=== PATIENT | male | born 1995 | race Caucasian/White ===

== ENCOUNTER 2018-10-01 12:11 | Outpatient (REF) | payer BC, SELFPAY ==
[2018-10-01 13:09] LABS: Abs Immature Grans 0.01 k/cumm (0.0-0.09); Absolute Basophil Count 0.03 k/cumm (0.0-0.2); Absolute Eosinophil Count 0.11 k/cumm (0.0-0.7); Absolute Lymphocyte Count 1.23 k/cumm (1.2-3.4); Absolute Monocyte Count 0.75 k/cumm (0.11-0.7); Absolute Neutrophil Count 3.79 k/cumm (1.2-6.7); Basophils % 0.5; Eosinophils % 1.9; HCT 42.7 % (40.0-50.0); HGB 14.7 g/dL (13.5-17.5); Immature Grans % 0.2; Lymphocytes % 20.8; Mean Corp. HGB Concentration 34.4 g/dL (32.0-36.0); Mean Corpuscular Hemoglobin 30.5 pg (27.0-33.0); Mean Corpuscular Volume 88.6 fL (80-95); Mean Platelet Volume 10.4 fL (8.0-11.0); Monocytes % 12.7; Neutrophils % 63.9; Platelet Count 223 x1000/uL (130-400); RBC 4.82 m/cumm (4.50-6.00); RBC Distribution Width 12.6 % (11.8-14.1); White Blood Cell Count 5.92 k/cumm (4.4-10.8)
[2018-10-01 13:44] LABS: ALT 24 U/L (12-78); AST 19 U/L (15-37); Albumin 4.3 g/dL (3.4-5.0); Alkaline Phosphatase 61 U/L (46-116); Anion Gap 9.1 mmol/L (3-11); BUN 13 mg/dL (7-18); Bilirubin, Total 0.9 mg/dL (0.2-1.0); CO2 29.9 mmol/L (21.0-32.0); CREATININE 0.86 mg/dL (0.70-1.30); Calcium 9.7 mg/dL (8.5-10.1); Chloride 103 mmol/L (98-107); Glucose 86 mg/dL (70-100); Potassium 4.2 mmol/L (3.5-5.1); Sodium 142 mmol/L (136-145); Total Protein 7.7 g/dL (6.4-8.2)
[2018-10-01 13:46] LABS: C-Reactive Protein < 0.05 mg/dL (0.0-0.3)
== END 2018-10-01 12:31 ==
LOC: LBO 12:11
PROVIDERS: Visit Provider Internal Medicine Infectious Disease
DX: M65.88 Other synovitis and tenosynovitis, other site (principal); Z79.2 Long term (current) use of antibiotics
CPT/HCPCS: 80053; 85025; 86140

== ENCOUNTER 2018-10-08 12:36 | Outpatient (REF) | payer BC, SELFPAY ==
[2018-10-08 13:12] LABS: ALT 31 U/L (12-78); AST 26 U/L (15-37); Albumin 4.1 g/dL (3.4-5.0); Alkaline Phosphatase 57 U/L (46-116); Anion Gap 11.8 mmol/L (3-11); BUN 10 mg/dL (7-18); Bilirubin, Total 0.2 mg/dL (0.2-1.0); C-Reactive Protein 0.11 mg/dL (0.0-0.3); CO2 26.2 mmol/L (21.0-32.0); CREATININE 1.09 mg/dL (0.70-1.30); Calcium 8.6 mg/dL (8.5-10.1); Chloride 106 mmol/L (98-107); Glucose 81 mg/dL (70-100); Potassium 4.1 mmol/L (3.5-5.1); Sodium 144 mmol/L (136-145); Total Protein 7.6 g/dL (6.4-8.2)
[2018-10-08 13:30] LABS: Abs Immature Grans 0.01 k/cumm (0.0-0.09); Absolute Basophil Count 0.03 k/cumm (0.0-0.2); Absolute Eosinophil Count 0.11 k/cumm (0.0-0.7); Absolute Lymphocyte Count 1.38 k/cumm (1.2-3.4); Absolute Monocyte Count 0.53 k/cumm (0.11-0.7); Absolute Neutrophil Count 0.94 k/cumm (1.2-6.7); Eosinophils % 3.7; HCT 40.9 % (40.0-50.0); HGB 14.4 g/dL (13.5-17.5); Immature Grans % 0.3; Mean Corp. HGB Concentration 35.2 g/dL (32.0-36.0); Mean Corpuscular Hemoglobin 30.3 pg (27.0-33.0); Mean Corpuscular Volume 85.9 fL (80-95); Mean Platelet Volume 10.1 fL (8.0-11.0); Monocytes % 17.7; Neutrophils % 31.3; Platelet Count 184 x1000/uL (130-400); RBC 4.76 m/cumm (4.50-6.00); RBC Distribution Width 12.3 % (11.8-14.1)
== END 2018-10-08 12:56 ==
LOC: LBN 12:36
PROVIDERS: Visit Provider Internal Medicine Infectious Disease
DX: M65.88 Other synovitis and tenosynovitis, other site (principal); Z79.2 Long term (current) use of antibiotics
CPT/HCPCS: 80053; 85025; 86140

== ENCOUNTER 2018-10-15 12:35 | Outpatient (REF) | payer BC, SELFPAY ==
[2018-10-15 13:22] LABS: Abs Immature Grans 0.01 k/cumm (0.0-0.09); Absolute Basophil Count 0.02 k/cumm (0.0-0.2); Absolute Eosinophil Count 0.09 k/cumm (0.0-0.7); Absolute Lymphocyte Count 1.08 k/cumm (1.2-3.4); Absolute Monocyte Count 0.56 k/cumm (0.11-0.7); Basophils % 0.6; Eosinophils % 2.6; HCT 39.6 % (40.0-50.0); HGB 13.8 g/dL (13.5-17.5); Immature Grans % 0.3; Lymphocytes % 30.8; Mean Corp. HGB Concentration 34.8 g/dL (32.0-36.0); Mean Corpuscular Hemoglobin 30.3 pg (27.0-33.0); Mean Corpuscular Volume 86.8 fL (80-95); Mean Platelet Volume 9.9 fL (8.0-11.0); Neutrophils % 49.7; Platelet Count 243 x1000/uL (130-400); RBC 4.56 m/cumm (4.50-6.00); RBC Distribution Width 12.8 % (11.8-14.1); White Blood Cell Count 3.51 k/cumm (4.4-10.8)
[2018-10-15 13:28] LABS: Absolute Neutrophil Count 1.74 k/cumm (1.2-6.7)
[2018-10-15 13:39] LABS: ALT 33 U/L (12-78); AST 32 U/L (15-37); Albumin 4.1 g/dL (3.4-5.0); Alkaline Phosphatase 55 U/L (46-116); Anion Gap 9.7 mmol/L (3-11); BUN 11 mg/dL (7-18); Bilirubin, Total 0.3 mg/dL (0.2-1.0); C-Reactive Protein 0.22 mg/dL (0.0-0.3); CO2 27.3 mmol/L (21.0-32.0); CREATININE 0.93 mg/dL (0.70-1.30); Calcium 8.5 mg/dL (8.5-10.1); Chloride 106 mmol/L (98-107); Glucose 68 mg/dL (70-100); Potassium 4.6 mmol/L (3.5-5.1); Sodium 143 mmol/L (136-145); Total Protein 7.4 g/dL (6.4-8.2)
== END 2018-10-15 12:55 ==
LOC: LBN 12:35
PROVIDERS: Visit Provider Internal Medicine Infectious Disease
DX: M65.88 Other synovitis and tenosynovitis, other site (principal); Z79.2 Long term (current) use of antibiotics
CPT/HCPCS: 80053; 85025; 86140

== ENCOUNTER 2018-10-23 12:34 | Outpatient (REF) | payer BC, SELFPAY ==
[2018-10-23 12:53] LABS: Absolute Basophil Count 0.02 k/cumm (0.0-0.2); Absolute Eosinophil Count 0.11 k/cumm (0.0-0.7); Absolute Lymphocyte Count 1.06 k/cumm (1.2-3.4); Basophils % 0.5; Eosinophils % 2.9; HCT 41.3 % (40.0-50.0); HGB 14.5 g/dL (13.5-17.5); Mean Corp. HGB Concentration 35.1 g/dL (32.0-36.0); Mean Corpuscular Hemoglobin 30.4 pg (27.0-33.0); Mean Corpuscular Volume 86.6 fL (80-95); Monocytes % 13.2; Neutrophils % 55.4; Platelet Count 225 x1000/uL (130-400); RBC 4.77 m/cumm (4.50-6.00); RBC Distribution Width 12.9 % (11.8-14.1); White Blood Cell Count 3.79 k/cumm (4.4-10.8)
[2018-10-23 13:03] LABS: ALT 39 U/L (12-78); AST 36 U/L (15-37); Albumin 4.3 g/dL (3.4-5.0); Alkaline Phosphatase 61 U/L (46-116); Anion Gap 7.9 mmol/L (3-11); BUN 13 mg/dL (7-18); Bilirubin, Total 0.7 mg/dL (0.2-1.0); CO2 29.1 mmol/L (21.0-32.0); CREATININE 0.92 mg/dL (0.70-1.30); Calcium 9.3 mg/dL (8.5-10.1); Chloride 104 mmol/L (98-107); Glucose 77 mg/dL (70-100); Potassium 4.2 mmol/L (3.5-5.1); Sodium 141 mmol/L (136-145); Total Protein 7.5 g/dL (6.4-8.2)
[2018-10-23 13:06] LABS: C-Reactive Protein < 0.05 mg/dL (0.0-0.3)
== END 2018-10-23 12:54 ==
LOC: LBN 12:34
PROVIDERS: Visit Provider Internal Medicine Infectious Disease
DX: M65.88 Other synovitis and tenosynovitis, other site (principal); Z79.2 Long term (current) use of antibiotics
CPT/HCPCS: 80053; 85025; 86140

== ENCOUNTER 2018-10-29 12:22 | Outpatient (REF) | payer BC, SELFPAY ==
[2018-10-29 13:06] LABS: Absolute Basophil Count 0.03 k/cumm (0.0-0.2); Absolute Eosinophil Count 0.08 k/cumm (0.0-0.7); Absolute Lymphocyte Count 1.48 k/cumm (1.2-3.4); Absolute Monocyte Count 0.55 k/cumm (0.11-0.7); Absolute Neutrophil Count 1.64 k/cumm (1.2-6.7); Basophils % 0.8; Eosinophils % 2.1; HCT 40.3 % (40.0-50.0); HGB 14.1 g/dL (13.5-17.5); Lymphocytes % 39.2; Mean Corpuscular Hemoglobin 30.9 pg (27.0-33.0); Mean Corpuscular Volume 88.2 fL (80-95); Mean Platelet Volume 9.6 fL (8.0-11.0); Monocytes % 14.6; Neutrophils % 43.3; Platelet Count 199 x1000/uL (130-400); RBC 4.57 m/cumm (4.50-6.00); RBC Distribution Width 13.5 % (11.8-14.1); White Blood Cell Count 3.78 k/cumm (4.4-10.8)
[2018-10-29 15:16] LABS: ALT 36 U/L (12-78); AST 42 U/L (15-37); Albumin 4.3 g/dL (3.4-5.0); Alkaline Phosphatase 60 U/L (46-116); BUN 8 mg/dL (7-18); Bilirubin, Total 0.5 mg/dL (0.2-1.0); CREATININE 0.93 mg/dL (0.70-1.30); Calcium 8.6 mg/dL (8.5-10.1); Chloride 104 mmol/L (98-107); Glucose 69 mg/dL (70-100); Potassium 4.3 mmol/L (3.5-5.1); Sodium 143 mmol/L (136-145); Total Protein 7.5 g/dL (6.4-8.2)
[2018-10-29 15:20] LABS: C-Reactive Protein < 0.05 mg/dL (0.0-0.3)
== END 2018-10-29 12:42 ==
LOC: LBN 12:22
PROVIDERS: Visit Provider Internal Medicine Infectious Disease
DX: M65.88 Other synovitis and tenosynovitis, other site (principal); Z79.2 Long term (current) use of antibiotics
CPT/HCPCS: 80053; 85025; 86140

== ENCOUNTER 2019-01-30 18:45 | Emergency (ER) | payer BC, SELFPAY ==
[2019-01-30 18:50] VITALS: BP 123/80; PULSE 62; RESP 18; TEMP 36.6; O2SAT 97
--- NOTE | 2019-01-30 19:02 | W.ED.GENAD ---
Discharge Plan Disposition Patient Disposition: HOME Condition: Stable Discharge Details Chief Complaint: GenMedical Clinical Impression: Examination for, laboratory Primary Care Provider: aJylene,Local ED Provider: Stefan Galicia Home Meds and New Rx's Prescriptions: No Action No Known Home Meds RF: 0 Discharge Instructions Additional Instructions: Our care management team will follow up with you regarding your laboratory tests. Abstain from sexual activity until you receive these final results. Return for any acute concern Medical Decision Making 23-year-old male who is concerned that his girlfriend is contracted an STD. He has had no lesions, dysuria, change to ejaculate. He states that they broke up which she may have had a sexual indiscretion. GC and chlamydia obtained as well as screening for herpes. Patient is a student at [employer]. He does not have a local primary care physician. We will ask care management to follow-up with him with results of his diagonostic studies. HPI General Mode of arrival: ambulatory. Date/Time Provider Initiated Documentation: 01/30/19 18:46. Limitations to Documentation: no limitations. Information obtained by: patient. History of Present Illness 23 year old M presents to the emergency department with the chief complaint of Concern for STD no symptoms, Quality is described as other, Patient started experiencing this unknown No relieving factors improve symptom(s), No exacerbating factors reported . Patient notes no other symptoms.. Related Data Home Medications Medication Instructions Recorded Confirmed Unknown [No Known Home Meds] 01/30/19 01/30/19 Allergies Allergy/AdvReac Type Severity Reaction Status Date / Time No Known Allergies Allergy Unverified 10/11/17 08:45 General Stated Complaint: GenMedical JEFF: 4 Review of Systems Review of Systems Denies discharge, fever, dysuria. Normal ejaculate. [facility] [place] Social History Smoking/Tobacco Use Status: Current every day Tobacco Type: cigarettes Smoking cigarettes per day: 6 Drug use: Occasionally Do you feel safe at home: Yes Do you feel safe in your relationship?: Yes Exam Narrative Exam Narrative: GEN: awake, alert, oriented 3. Pleasant, well groomed, interactive. HEAD: Normocephalic, atraumatic ENT: Mucous membranes moist, oropharynx unremarkable, External ear exam unremarkable EYES: PERRL, EOMI ABDOMEN: Soft, nontender, no mass. +Bowel sounds. Bilateral descended testes, circumcised penis with no lesions or mass EXT: Full ROM, no edema, no rash Neuro: Grossly normal neurologic exam, conversant, interactive. Psych: Speech fluent, thoughts congruent, affect normal Course Vital Signs Temperature 36.6 C 01/30/19 18:50 Pulse 62 01/30/19 18:50 Respiratory Rate 18 01/30/19 18:50 Blood Pressure 123/80 01/30/19 18:50 Pulse Oximetry 97 01/30/19 18:50 Temperature 36.6 C 01/30/19 18:50 Temperature Source Temporal Artery Scan 01/30/19 18:50 Pulse 62 01/30/19 18:50 Respiratory Rate 18 01/30/19 18:50 Respiratory Effort 01/30/19 18:50 Blood Pressure 123/80 01/30/19 18:50 Blood Pressure Position Sitting 01/30/19 18:50 Pulse Oximetry 97 01/30/19 18:50 Oxygen Delivery Method Room Air 01/30/19 18:50 Oxygen Flow Rate 0 01/30/19 18:50
[2019-02-01 14:19] LABS: Chlamydia Result Negative; GC Result Negative; Specimen Description URINE
[2019-02-01 21:25] LABS: HSV 1 PCR, Blood Negative (Negative); HSV 2 PCR, Blood Negative (Negative)
--- NOTE | 2019-02-02 08:22 | W.ED.FU ---
Follow Up Plan: Discussed negative test results with patient.
== END 2019-01-30 19:28 | disposition home or self-care (01) ==
PROVIDERS: Emergency Provider Emergency Medicine
DX: Z20.2 Contact with and (suspected) exposure to infections with a predominantly sexual mode of transmission (principal)
CPT/HCPCS: 87491; 87529; 87591; 99282

== ENCOUNTER 2019-04-28 14:18 | Outpatient (REF) | payer BC, SELFPAY | END 2019-04-28 14:38 | LOC: LBN 14:18 | PROVIDERS: Visit Provider Physician Assistant | DX: L02.31 Cutaneous abscess of buttock (principal) | CPT/HCPCS: 87070; 87205 ==